=== PATIENT | male | born 1930 | race Caucasian/White ===

== ENCOUNTER 2016-11-29 16:52 | Inpatient (IN) | payer MEDICARE, BC ==
--- NOTE | ~2016-11-29 | CR72 ---
[facility] A Service of [facility] RADIOLOGY TEXT RESULTS PATIENT: LUIS MCCALL LOCATION: CEDOF : 31 UNIT #: [id number] AGE: [address]: Gill Keller MD SEX: M ORDER DR: [id number] [facility] [address] [place], [place] [address] [id number] I MR#: [id number] Acc #: [id number] NAME: LUIS MCCALL : 1930 SEX: M STUDY DATE/TIME: 11/29/2016 16:22 UNIT: CEDOF ROOM: [id number] STUDY DESCRIPTION: CR Chest Single View Portable Attending Physician: Paramjit Bill M.D. Ordering Physician: Enedelia Cornell M.D. Primary Care Physician: Selin Beasley A.P.RMichael MEDICAL IMAGING REPORT This report is preliminary unless electronic signature is present EXAM Portable chest INDICATIONS Cough and chest congestion for the past 3 days. PROCEDURE Frontal view chest. COMPARISON 10/18/2016 FINDINGS Cardiomegaly is stable. There is some ill-defined opacity in the right lung base increased from the prior. No new dense consolidation. No large effusion or pneumothorax. IMPRESSION 1. Cardiomegaly is stable. 2. New ill-defined opacity in the right lung base probably representing atelectasis but a developing infiltrate is not excluded. Dictated by... Carlitos Aguilar M.D. THIS IS AN ELECTRONICALLY VERIFIED REPORT Carlitos Aguilar M.D. at 12/02/2016 7:21 AM EED/asael TD: 11/30/2016 04:28 JOB #: [id number] MEDICAL IMAGING REPORT [facility] A Service [facility] RADIOLOGY TEXT RESULTS PATIENT: LUIS MCCALL LOCATION: CEDOF : 31 UNIT #: [id number] AGE: [address]: Gill Keller MD SEX: M ORDER DR: COPY
--- NOTE | ~2016-11-29 | CO ---
Unit #: [id number] #: [id number] Patient: LUIS MCCALL [id number] [facility] [address] [place], [place] [address] [id number] I MR#: [id number] NAME: LUIS MCCALL ROOM: 02582 Age: Sex: M Admission Date: 11/29/2016 : 1930 Attending Physician: Gill Keller M.D. Primary Care Physician: Selin Beasley A.P.R.N. Consultation Date: 11/30/2016 CONSULTATION REPORT REASON FOR CONSULTATION Acute exacerbation of CHF. HISTORY OF PRESENT ILLNESS This is an 86-year-old white male, well known with [facility], Dr. Miguel Silveira, as his institution director. Recently, admitted last month in October with syncope, sick sinus syndrome, supratherapeutic INR, and nose bleeds after a fall. He was found to have an L2 fracture at that admission. Today, he is back with worsening CHF symptoms, complaints of shortness of breath, dizziness. Also, has complaints of recent lower leg swelling, decreased appetite. On admission, he was found to have weight gain. His weight on 10/20/2016 was 97 kilos and his admission weight on 11/29/2016 was 104.92 kilos. Cardiology was asked to see him for acute exacerbation of CHF. Last echo in 06/2016 showed normal LV function with EF of 50% to 55% with moderate aortic stenosis and moderate mitral regurgitation, severe tricuspid regurgitation, and moderate to severe pulmonary hypertension. After his recent admission, he went to [facility] unit and was discharged 10 days ago. He had home health come out to evaluate him and they have not been back. The family did not have access to medication as they were not called in appropriately and he has not had any of his medicines for the last week or so according to his daughter, who is his power of assistant district attorney. There were plans for him to be admitted to [facility] and when they called EMS, they thought that he was going to be going straight to [facility], however, he was deemed to unstable and inappropriate for skilled rehab, and he was subsequently admitted through the ER for further evaluation. In the ER, his BNP was 1171. Chest x-ray showed that he had a new ill-defined opacity in the right lung base, questionable probably related to atelectasis, questionable pneumonia. White count was elevated at 11.6. PAST MEDICAL HISTORY Includes permanent AFib with slow rate; tachy-pebbles; sick sinus syndrome; supratherapeutic INR; frequent fall secondary to syncope; valvular heart disease; coronary artery disease, status post stent to the OM1 in 2012; COPD; severe pulmonary hypertension. He was recently on Coumadin. However, in October at his last admission, his INR was 3.8 and he had recurrent epistaxis and was taken off anticoagulation at that time. He was also found to be symptomatically bradycardic with AFib, rate was in the 30s to 40s and was taken off his beta-nico. Remote history of CVA, hypertension, hyperlipidemia. PAST SURGICAL HISTORY Unit #: [id number] #: [id number] Patient: LUIS MCCALL cardiac catheterization on 03/01/2013, done at [facility] per Dr. Beebe, revealed a normal left main, obtuse marginal 1 of 99% with mild plaque, second diagonal of LAD with 90%, mid right coronary artery disease with mild calcification, left ventricular ejection fraction of 45%, PA pressure is 34/14, mean of 22, cardiac output 3.84, cardiac index 1.74, mild aortic stenosis, abdominal aortic aneurysm, unsuccessful angioplasty of the OM1, status post rotablation in OM1 with PCI and drug-eluting stent placed on 05/19/[address] Hoff at [facility]. HOME MEDICATIONS Only include Lasix 20 mg daily, ipratropium bromide for COPD, nebulizer q.i.d. He has not had his home medicines in over a week. ALLERGIES Include cortisone. SOCIAL HISTORY The patient has been living at home for about 10 days with his daughter and his niece. He is a reformed smoker. No illicit drug use. No alcohol consumption. FAMILY HISTORY Significant for heart disease. REVIEW OF SYSTEMS 10-point review of systems was negative, expect for details noted above in the HPI. PHYSICAL EXAMINATION VITAL SIGNS: Temperature 98.4; heart rate 45 to 55; respirations 22; blood pressure 144/126, on recheck, his blood pressure was 129/65. GENERAL: He appears in respiratory distress. He is conversationally dyspneic. NECK: Supple with no JVD and no bruits noted. LUNGS: Bilateral rales. CARDIOVASCULAR: He is in an irregularly irregular rhythm with S1, S2 noted. His rates are anywhere from 45 to 55, and he does have a murmur. ABDOMEN: Firm and distended. Nontender however with positive bowel sounds. EXTREMITIES: Positive for 2 to 3+ edema. NEUROLOGIC: He is somewhat confused, but appropriate. DIAGNOSTIC STUDIES CARDIOVASCULAR STUDIES: EKG, 11/30/2016, showed AFib with slow ventricular response, right bundle-branch block, and left anterior fascicular block. IMAGING STUDIES: Chest x-ray, 11/29/2016; new ill-defined opacity in the right lung base, atelectasis, questionable pneumonia. LABORATORY RESULTS: Includes sodium 133, potassium 4.3, chloride 99, CO2 of 25, BUN 33, creatinine 1.4, glucose 213. BNP was 1171. INR was 1.2. Hemoglobin 10.1, hematocrit 32.9, WBCs 10.9, and platelets 173. To note, his A1c at last admission was 7.9. ASSESSMENT 1. Permanent atrial fibrillation with slow ventricular response with a Unit #: [id number] #: [id number] Patient: LUIS MCCALL right bundle-branch block. 2. Symptomatic sick sinus syndrome. 3. Hypertension. 4. Acute diastolic congestive heart failure with volume overload. BNP is 1171. 5. Bilateral lower extremity edema. 6. Diabetes. A1c of 7.9. PLAN Cardiology has been asked to see him for acute exacerbation of CHF. He has been noncompliant with his medications, stating that they could not be filled or they were not called in, and he has not had any medicines for the last week. He is very volume overload. We need to correct his volume status to improve his condition. We will start him on aggressive Bumex drip 3 mg/h for 6 hours and then titrate down. Strict I's and O's. BNP and magnesium level at 4:00, and start potassium replacement protocol for electrolyte monitoring and 2000 fluid restriction would be appropriate as were the low-salt diet, daily weights, and strict I's and O's with Frank catheter placed. The patient and his daughter are expressing concerns. They would like to be transferred to [facility], so that they could follow with his regular institution director, who is Dr. Silveira with [facility]. I have discussed that in-depth with Kenn Oconnor, who is the on-call MD with that group and with the [employer] to arrange for bed transport. This consult took over an hour, just being on the phone dealing with administrative placement at [facility]. He will be transferred there later today. Dictated by... Ana Briggs APRN for Rayshawn Polanco M.D. KANWAL/heike TD: 12/01/2016 00:47 JOB #: [id number] CONSULTATION REPORT X X CONSULTATION REPORT
--- NOTE | ~2016-11-29 | HP ---
Unit #: [id number] #: [id number] Patient: LUIS MCCALL [id number] [facility]. [place], [place] [address] [id number] MR#: [id number] NAME: LUIS MCCALL ROOM: 13475 Age: 86 Sex: M Admission Date: 11/29/2016 : 1930 Attending Physician: Gill Keller M.D. Primary Care Physician: Selin Beasley A.P.R.N. HISTORY AND PHYSICAL CHIEF COMPLAINT Shortness of breath, dizziness, cough, lower extremity edema. HISTORY OF PRESENT ILLNESS This is an 86-year-old gentleman who has a history of permanent atrial fibrillation with slow ventricular response, right bundle branch block, left anterior fascicular block, history of falls, epistaxis not on chronic anticoagulation secondary to epistaxis, coronary artery disease with three-vessel stent, valvular heart disease, sick sinus syndrome, history of COPD, old CVA. The patient was recently in the rehab, was discharged 10 days ago to home. Visiting nurse came to home, patient has been declining, unable to ambulate, unable to take care of the patient herself. Family at bedside. As per doctor, he is supposed to go to [facility] but he got shortness of breath and he was brought to the ER for evaluation. The patient was found to have pneumonia, right base infiltrate on the x-ray, elevated BNP 1102. Initially, the family declined admission, they wanted patient transferred to [facility] but there was no bed available. Then, later on, they said it is okay to admit here. They also want once patient is stable to rehab here in [facility]. The patient telling me he has been having some shortness of breath, cough, but denies chest pain, denies nausea, vomiting, fever, or chills but he has been having some cough with whitish-yellowish phlegm. PAST MEDICAL HISTORY 1. History of coronary artery disease. 2. History of past cardiac catheterization and stent to obtuse marginal in 2012. 3. History of permanent atrial fibrillation with slow ventricular response. Not on anticoagulation, discontinued secondary to epistaxis. Family does not want anticoagulation. 4. History of right bundle branch block/left anterior fascicular block. 5. History of sick sinus syndrome. 6. History of fall with compression fracture of L2. 7. History of valvular heart disease. Moderate aortic stenosis, moderate MR, severe TR. 8. Hkrwjzqr-ob-hecdwy pulmonary hypertension. 9. History of old CVA. 10. History of COPD. PAST SURGICAL HISTORY History of cath in the past. HOME MEDICATIONS Unit #: [id number] #: [id number] Patient: LUIS MCCALL 1. Lasix 20 mg daily. 2. Ipratropium 0.5 mg by nebulizer q.i.d. ALLERGIES Cortisone. SOCIAL HISTORY Patient lives in private residence. He does not smoke, quit 15 years ago. No illicit drug use. He drinks apparently wine. FAMILY HISTORY Significant for heart disease. REVIEW OF SYSTEMS A 14-point review of systems is negative except per history of present illness. PHYSICAL EXAMINATION VITAL SIGNS: Temperature 97.6, heart rate 53, respiratory rate 23, blood pressure 126/72, oxygen 99% on room air. GENERAL: Middle-aged man lying in the bed, comfortably, currently not in any distress. He is alert, awake, oriented x3. HEENT: Pupils are equal and reactive to light and accommodation. Head is normocephalic, atraumatic. NECK: Supple. No JVD. LUNGS: Poor air entry with bilateral basal crackles. HEART: S1, S2. Regular rate and rhythm. 2/6 systolic murmur. ABDOMEN: Soft, nontender, nondistended. Bowel sounds positive. EXTREMITIES: 2+ edema. NEUROLOGIC: No focal neurologic deficits. DIAGNOSTIC STUDIES LABORATORY: Troponin less than 0.05. BNP 1102. Lactic acid level is 2. Sodium 131, potassium 4.5, chloride 98, glucose 194, BUN 34, creatinine 1.3, liver function tests within normal limits. INR 1.2. Total bilirubin 2.2, direct bilirubin 0.8, indirect bilirubin 1.4. ABG pH 7.3, CO2 37. White count 11, hemoglobin 10, hematocrit 34, platelets 174. IMAGING: Chest x-ray shows right basilar infiltrate. ASSESSMENT AND PLAN 1. Pneumonia. The patient was recently in prison. Will start patient on IV Zosyn and vancomycin. 2. Congestive heart failure with increased BNP. His ejection fraction last admission was 50% to 55%. Will start on IV diuretics. Ask Cardiology to evaluate. 3. History of permanent atrial fibrillation with slow ventricular response. Right ventricular block and left anterior fascicular block. Patient is not on anticoagulation secondary to epistaxis. I discussed with the patient again at bedside risk for stroke but the family, daughter, available at the bedside. They do not want any anticoagulation. 4. History of falls with compression fracture of L2. 5. History of coronary artery disease with previous stent to obtuse marginal in 2012. 6. Valvular heart disease. Moderate aortic stenosis, moderate MR, severe TR. 7. Ktauickm-gk-klxoez pulmonary hypertension. Unit #: [id number] #: [id number] Patient: LUIS MCCALL 8. History of sick sinus syndrome. 9. History of old cerebrovascular accident. 10. History of chronic obstructive pulmonary disease. 11. DVT prophylaxis. Will place the patient on SCDs. Dictated by Jackie Navarro/kenna TD: 11/30/2016 12:39 JOB #: [id number] HISTORY AND PHYSICAL X X HISTORY AND PHYSICAL
--- NOTE | ~2016-11-29 | EKG ---
PATIENT: LUIS MCCALL UNIT #: [id number] Ventricular Rate: 52 BPM Atrial Rate: 300 BPM QRS Duration: 148 ms Q-T Interval: 548 ms QTC Calculation(Bezet): 509 ms Calculated R Holliday: -76 degrees Calculated T Holliday: 27 degrees Diagnosis Line: Atrial fibrillation with slow ventricular response Diagnosis Line: Right bundle branch block Diagnosis Line: Left anterior fascicular block Diagnosis Line: Bifascicular block Diagnosis Line: Abnormal ECG Diagnosis Line: When compared with ECG of 19-OCT-2016 06:59, Diagnosis Line: No significant change was found Diagnosis Line: Confirmed by CHIN NAIDU MD ([id number]) on 11/30/2016 Diagnosis Line: 7:56:36 AM INTERPRETING MD: EVANGELISTA SUAREZ
[2016-11-29 15:54] LABS: POC - CKMB 2.2 ng/mL (0.0-7.9); POC - TROPONIN <0.05 ng/mL (<=0.05)
[2016-11-29 16:16] LABS: BASOPHIL# 0.1 X10e3 (0-0.3); BASOPHIL% 0.6 % (0-2.5); DIFF IND NO; EOSINOPHIL% 0.3 % (0.0-7.0); HEMATOCRIT 34.6 % (38.0-50.0); HEMOGLOBIN 10.5 gm/dL (13.0-16.0); LYMPHOCYTE# 0.8 X10e3 (1.0-3.5); LYMPHOCYTE% 6.7 % (17.0-45.0); MEAN CELL VOLUME 89.3 FL (83-96); MEAN CORPUSCULAR HEMOGLOBIN 27.1 PG (28-34); MEAN CORPUSCULAR HGB CONC 30.3 g/dL (30-36); MEAN PLATELET VOLUME 9.2 FL (6.5-11.5); MONOCYTE# 1.3 X10e3 (0-1.0); MONOCYTE% 11.2 % (3.0-12.0); NEUTROPHIL# 9.4 X10e3 (1.5-7.1); NEUTROPHIL% 81.2 % (40-75); PLATELET COUNT 174 X10e3 (140-420); RED BLOOD COUNT 3.87 X10e (3.90-5.60); RED CELL DISTRIBUTION WIDTH 18.6 % (11.0-15.5); WHITE BLOOD COUNT 11.6 X10e3 (4.0-10.5)
[2016-11-29 16:24] LABS: ARTERIAL BLD GAS O2 SATURATION 94.5 % (90.0-100.0); ARTERIAL BLOOD GAS CARBOXY HB 1.5 %sat (0.0-9.0); ARTERIAL BLOOD GAS HCO3 21.1 mmol/L; ARTERIAL BLOOD GAS MET HB 0.5 %sat (0.0-2.0); ARTERIAL BLOOD GAS PO2 86.4 mmHg (80.0-100); ARTERIAL BLOOD GAS pH 7.363 (7.350-7.450)
[2016-11-29 16:25] LABS: ARTERIAL BLOOD GAS ALLEN TEST NORMAL; ARTERIAL BLOOD GAS ART SITE RIGHT RADIAL; ARTERIAL BLOOD GAS DELIVERY NASAL CANNULA; ARTERIAL DRAW? YES
[2016-11-29 16:31] LABS: INR 1.2; PROTHROMBIN TIME (PATIENT) 13.1 SECONDS (9.6-11.5)
[2016-11-29 16:38] LABS: ALBUMIN SERUM 3.8 g/dL (3.5-5.0); BILIRUBIN, DIRECT 0.8 mg/dL (0.0-0.2); BILIRUBIN,INDIRECT 1.4 mg/dL (0.0-0.9); BILIRUBIN,TOTAL 2.2 mg/dL (0.2-2.0); BUN/CREATININE RATIO 26.15; CALCIUM SERUM 9.1 mg/dL (8.4-10.2); CREATININE SERUM 1.3 mg/dL (0.6-1.4); GLOM FILT RATE Estimated 55.8 mL/min (>60); POTASSIUM 4.5 mmol/L (3.5-5.1); PROTEIN TOTAL SERUM 7.2 g/dL (6.0-8.3)
[~2016-11-29 16:52] MED LIST: ASPIRIN EC81 M1 PO; ASPIRIN PO; ATROVENT NEB; COUMADIN2.5 MG PO; FOSINOPRIL; KCL PO; LANOXIN PO; LASIX20 MG PO; LIPITOR40 MG PO; LOPRESSOR PO; MULTI-VITAMIN1 TAB PO; NITROGYLCERIN SUBLINGUAL; PLAVIX PO; SULAR; ZESTRIL5 MG PO
[2016-11-29 18:54] LABS: POC - CKMB 1.5 ng/mL (0.0-7.9); POC - TROPONIN <0.05 ng/mL (<=0.05)
[2016-11-30 05:17] LABS: BASOPHIL# 0.1 X10e3 (0-0.3); BASOPHIL% 0.5 % (0-2.5); EOSINOPHIL% 0.4 % (0.0-7.0); HEMATOCRIT 32.9 % (38.0-50.0); HEMOGLOBIN 10.1 gm/dL (13.0-16.0); LYMPHOCYTE# 0.8 X10e3 (1.0-3.5); LYMPHOCYTE% 6.9 % (17.0-45.0); MEAN CELL VOLUME 89.1 FL (83-96); MEAN CORPUSCULAR HEMOGLOBIN 27.3 PG (28-34); MEAN CORPUSCULAR HGB CONC 30.7 g/dL (30-36); MEAN PLATELET VOLUME 8.7 FL (6.5-11.5); MONOCYTE# 1.2 X10e3 (0-1.0); MONOCYTE% 11.3 % (3.0-12.0); NEUTROPHIL# 8.8 X10e3 (1.5-7.1); NEUTROPHIL% 80.9 % (40-75); PLATELET COUNT 173 X10e3 (140-420); RED BLOOD COUNT 3.69 X10e (3.90-5.60); RED CELL DISTRIBUTION WIDTH 18.6 % (11.0-15.5); WHITE BLOOD COUNT 10.9 X10e3 (4.0-10.5)
[2016-11-30 05:20] LABS: DIFF IND NO
[2016-11-30 05:38] LABS: BUN/CREATININE RATIO 23.57; CALCIUM SERUM 8.3 mg/dL (8.4-10.2); CREATININE SERUM 1.4 mg/dL (0.6-1.4); GLOM FILT RATE Estimated 51.2 mL/min (>60); POTASSIUM 4.3 mmol/L (3.5-5.1)
== END 2016-11-30 11:55 | disposition short-term general hospital (02) | DRG 291 ==
LOC: CED 16:52 → CEDOF 22:40
PROVIDERS: Emergency Medicine; Internal Medicine
DX: I11.0 Hypertensive heart disease with heart failure (principal); J18.9 Pneumonia, unspecified organism; I27.2 Other secondary pulmonary hypertension; I49.5 Sick sinus syndrome; I48.2 Chronic atrial fibrillation; J44.9 Chronic obstructive pulmonary disease, unspecified; I50.33 Acute on chronic diastolic (congestive) heart failure; Z91.81 History of falling; I25.10 Atherosclerotic heart disease of native coronary artery without angina pectoris; I08.3 Combined rheumatic disorders of mitral, aortic and tricuspid valves; Z86.73 Personal history of transient ischemic attack (TIA), and cerebral infarction without residual deficits; E11.9 Type 2 diabetes mellitus without complications; I45.10 Unspecified right bundle-branch block
CPT/HCPCS: 36415; 36600; 71010; 80048; 80076; 82553; 82803; 83605; 83880; 84484; 85025; 85610; 85730; 87040; 93005; 94640; 94761; 96374; 99285; J1940; J2543; J3260; J3370